=== PATIENT | male | born 2000 | race Caucasian/White ===

== ENCOUNTER 2022-05-08 19:47 | Emergency (ER) | payer OTHER ==
[~2022-05-08] VITALS: Ht 180.3 cm; Wt 60.1 kg
[2022-05-08] MEDS ORDERED: DOXYCYCLINE 100 MG (VIBRAMYCIN) TABLET PO STA (20:16)
--- NOTE | 2022-05-08 20:16 | ED GU-Male ---
General Stated Complaint: RIGHT GONAD PAIN Source: patient Exam Limitations: no limitations History of Present Illness Date Seen by Provider: May 08, 2022 Time Seen by Provider: 19:51 Initial Comments 22-year-old male presenting as a referral from urgent care due to right testicle pain and swelling. He states its been painful and swollen for the past month, worsening over the past several days. No nausea or vomiting associated with it. He is sexually active and states he does use condoms consistently. Denies any discharge, dysuria, hematuria, trauma to his testicle, or any other concerns. Allergies and Home Medications Allergies Coded Allergies: No Known Drug Allergies (Unverified , 05/08/22) Patient Home Medication List Home Medication List Reviewed: Yes Doxycycline Hyclate (Doxycycline Hyclate) 100 Mg Tablet, 100 MG PO BID Prescribed by: ANGI HUDSON on 05/08/222024 Review of Systems Review of Systems Constitutional: No fever EENTM: no symptoms reported Respiratory: no symptoms reported Cardiovascular: no symptoms reported Gastrointestinal: no symptoms reported Genitourinary: see HPI Musculoskeletal: no symptoms reported Skin: no symptoms reported Psychiatric/Neurological: No Symptoms Reported Past Bfznvjy-Rgljmh-Emeear Hx Patient Social History Substance use?: No Past Medical History Surgeries: No Physical Exam Vital Signs Capillary Refill : Height, Weight, BMI Height: '" Weight: lbs. oz. kg; BMI Method: General Appearance: WD/WN, no apparent distress HEENT: PERRL/EOMI, normal ENT inspection, pharynx normal Neck: non-tender, full range of motion, normal inspection Cardiovascular: regular rate, rhythm, no edema, no murmur Respiratory: chest non-tender, lungs clear, normal breath sounds, no respiratory distress, no accessory muscle use Gastrointestinal: normal bowel sounds, non tender, soft; No distended, No guarding, No rebound Male: other (Right testicle does seem slightly larger compared to the left, there is tenderness along his epididymis on the right, cremasteric reflexes intact, no hernia felt) Back: normal inspection, no CVA tenderness Extremities: normal range of motion, non-tender, normal inspection, no pedal edema, no calf tenderness, normal capillary refill Neurologic/Psychiatric: no motor/sensory deficits, alert, normal mood/affect Skin: normal color, warm/dry Lymphatic: no adenopathy Progress/Results/Core Measures Suspected Sepsis SIRS Temperature: Pulse: Respiratory Rate: Blood Pressure / Mean: Results/Orders Lab Results Laboratory Tests Test 05/08/22 20:20 Range/Units Urine Color YELLOW Urine Clarity CLEAR Urine pH 6.0 5-9 Urine Specific [place] 1.015 L 1.016-1.022 Urine Protein NEGATIVE NEGATIVE Urine Glucose (UA) NEGATIVE NEGATIVE Urine Ketones NEGATIVE NEGATIVE Urine Nitrite NEGATIVE NEGATIVE Urine Bilirubin NEGATIVE NEGATIVE Urine Urobilinogen 0.2 < = 1.0 MG/DL Urine Leukocyte Esterase NEGATIVE NEGATIVE Urine RBC (Auto) TRACE-I H NEGATIVE Urine RBC 2-5 H /HPF Urine WBC 10-25 H /HPF Urine Squamous Epithelial Cells NONE /HPF Urine Crystals NONE /LPF Urine Bacteria FEW H /HPF Urine Casts NONE /LPF Urine Mucus NEGATIVE /LPF Urine Culture Indicated YES My Orders Orders - ANGI HUDSON MD Ua Culture If Indicated (05/08/22 20:00) Neis Ahsan Dna Urine Test (05/08/22 20:00) Chlamydia Trachomatis Urine (05/08/22 20:00) Ceftriaxone (Rocephin) (05/08/22 20:30) Doxycycline Hyclate Tablet (Vibramycin T (05/08/22 20:16) Hydrocodone/Apap 5/325 Tablet (Lortab 5 (05/08/22 20:30) Rx-Hydrocodone/Apap 5-325 Mg (Rx-Vicodin (05/08/22 20:30) Urine Culture (05/08/22 20:20) Ceftriaxone (Rocephin) (05/08/22 20:28) Medications Given in ED Current Medications Medications Dose Ordered Sig/Tere Route Start Time Stop Time Status Last Admin Dose Admin Acetaminophen/ Hydrocodone Bitart 1 ea ONCE ONCE PO 05/08/22 20:30 05/08/22 20:31 DC 05/08/22 20:34 1 EA Acetaminophen/ Hydrocodone Bitart 1 ea Q4H PRN PO 05/08/22 20:30 05/08/22 20:34 1 EA Ceftriaxone Sodium 500 mg ONCE ONCE IM 05/08/22 20:30 05/08/22 20:31 DC 05/08/22 20:33 500 MG Vital Signs/I&O Capillary Refill : Progress Note : Progress Note 22-year-old male presenting for right testicle pain and swelling for the past month. ABCs were intact and vitals were stable on presentation. Physical exam done with metal polisher in room showing some increase in size of the right testicle compared to the left. Tenderness over his epididymis. Normal cremasteric reflex. Testicle does not appear to be high riding, in the absence of nausea and vomiting less likely to be testicular torsion. I did a [id number] ultrasound showing what appeared to be Doppler flow to the bilateral testicles that appeared similar. His epididymis on the right did appear to be more vascular on Doppler compared to the left. Pain improves with elevation of testicle also pointing toward epididymitis. I discussed with the patient if he does have testicular torsion, after 1 month his testicle would not be george vageable. I discussed that this is highly unlikely given his exam. I discussed he needs a formal ultrasound done tomorrow in [place] to evaluate fully for torsion versus mass versus epididymitis which I think is the likely diagnosis. He was given IM shot of ceftriaxone as well as oral doxycycline. Orders were given for the ultrasound as an outpatient tomorrow, if it is epididymitis like his exam is seeming to be, he will already have prescription sent. If it is testicular torsion then he would need to be referred to the emergency department. If it is a mass then he can be referred to a urologist as an outpatient which I will give him information for (patient lives in [place] and will finish [employer] school in a couple weeks to go back home, told him he can follow up there if that is the case). Urinalysis as well as chlamydia and gonorrhea testing sent in the ER here today. Departure Impression Primary Impression: Testicular swelling, right Disposition: 01 HOME, SELF-CARE Condition: Stable Departure-Patient Inst. Decision time for Depature: 20:40 Referrals: NO,LOCAL PHYSICIAN (PCP/Family) Primary Care Physician Patient Instructions: Epididymitis Add. Discharge Instructions: I think you most likely have something called epididymitis which is most often due to an infection. You received an injection of an antibiotic in the ER tonight as well as a pill. You will be on a pill twice a day for the next 10 days. You will need to call the number on the paperwork to get the ultrasound done in [place] tomorrow. It is still possible that your testicle could be twisted. Given its been like this for over a month, if that is the case, it likely will not be salvageable, but I think this is unlikely what is happening. It is also possible they may see some type of mass (again less likely). If it is epididymitis or mass, you can follow-up with a urologist back home in [place]. If it is testicular torsion, which would be the twisting of the testicle, you would need to go to the ER tomorrow after the ultrasound. Take ibuprofen as needed for pain, if you have pain on top of that you can take one of the few hydrocodone you were given from the ER. Scripts Doxycycline Hyclate (Doxycycline Hyclate) 100 Mg Tablet 100 MG PO BID for 10 Days, #20 TAB 0 Refills Prov: ANGI HUDSON MD 05/08/22 Work/School Note: School/Childcare Release Date Seen in the Emergency Department: May 08, 2022 Time Dismissed from Emergency Department: 20:26 Return to School: May 10, 2022 Restrictions: No Restrictions ANGI HUDSON MD May 08, 2022 20:16
[2022-05-08 20:22] LABS: BILIRUBIN,URINE NEGATIVE (NEGATIVE); CLARITY,URINE CLEAR; COLOR,URINE YELLOW; GLUCOSE, URINE (UA) NEGATIVE (NEGATIVE); KETONES,URINE NEGATIVE (NEGATIVE); LEUKOCYTE ESTERASE ,URINE NEGATIVE (NEGATIVE); NITRITE,URINE NEGATIVE (NEGATIVE); PROTEIN,URINE NEGATIVE (NEGATIVE)
[2022-05-08 20:25] LABS: BACTERIA,URINE FEW /HPF
[2022-05-08] MEDS ORDERED: DOXY100T2 PO (20:25)
[2022-05-08] MEDS ORDERED: cefTRIAXone 500 MG/5 ML ML ONE (20:28)
[2022-05-08] MEDS ORDERED: HYDROcodone/APAP 5 MG/325 MG (LORTAB) TAB PO ONE (20:30)
[2022-05-08] MEDS ORDERED: cefTRIAXone 250 MG/2.5 ML ML IM ONE (20:30)
[2022-05-08 20:50] VITALS: BP 122/61
== END 2022-05-08 20:50 | disposition home or self-care (01) ==
LOC: ER FS 19:53
DX: N50.89 Other specified disorders of the male genital organs (principal); Z28.310 Unvaccinated for COVID-19
CPT/HCPCS: 36415; 81000; 87088; 87491; 87591; 99284

== ENCOUNTER → 2022-05-09 | Outpatient (CLI) | payer OTHER ==
[~2022-05-09] MED LIST: DOXY100T2 PO
--- NOTE | 2022-05-09 10:57 | Diagnostic Imaging Report ---
PROCEDURE: US Scrotum. TECHNIQUE: Multiple Real-time grayscale images were obtained over the scrotum in various projections bilaterally. INDICATION: Right testicle pain and swelling. FINDINGS: The right testicle measures 4.0 x 2.6 x 2.8 cm. The left testicle measures 4.6 x 2.4 x 2.6 cm. The testes have homogeneous echogenicity and normal blood flow. There is a small right hydrocele. There are no varicoceles. The left epididymis is normal. The right epididymis is enlarged and hyperemic. IMPRESSION: Right epididymitis. Dictated by: Dictated on workstation # [id number]
== END ==
LOC: RAD 10:02
PROVIDERS: ATTEND Emergency Medicine
DX: N45.1 Epididymitis (principal)
CPT/HCPCS: 76870